=== PATIENT | female | born 1965 ===

== ENCOUNTER → 2016-09-14 | Outpatient (CLI) | payer OTHER ==
--- NOTE | 2016-09-14 13:45 | US ---
Ultrasound left breast 1306 hours. History: Smooth nodule upper central left breast at mammography. Findings: Ultrasound of the left breast 12 o'clock position about 1 cm from the nipple demonstrates a simple cyst within dense breast parenchymal tissue that measures 4 x 4 x 6 mm. This corresponds in l ocation and appearance to the finding seen at mammography. A few additional smaller cysts are noted w ithin the dense breast parenchyma as well. No solid mass is evident. Impression: Benign fibrocystic condition upper left breast that corresponds to mammographic abnormali ty. BI-RADS 2 Routine annual mammographic followup recommended. The results of this study were reviewed with the patient.
== END ==
LOC: FIMAGING 12:55
PROVIDERS: ATTEND Obstetrics & Gynecology
DX: N60.02 Solitary cyst of left breast (principal)